=== PATIENT | female | born 1985 | race Caucasian/White ===

== ENCOUNTER → 2025-02-03 | Outpatient (CLI) | payer SELFPAY ==
--- NOTE | 2025-02-03 13:11 | BI_ITS ---
EXAM: SCRN MAMM (CAD)W/DEVAN BILAT 02/03/2025 CLINICAL HISTORY: F, Age 39 y/o , SCREENING TECHNIQUE: Bilateral Diagnostic digital breast tomosynthesis with 2D and 3D images. Computer aided detection. COMPARISON: None. This is a baseline study. FINDINGS: TISSUE DENSITY: The breast tissue is extremely dense which lowers the sensitivity of mammography. Bilateral Breast Mammographic Findings: There are clusters of amorphous, round and punctate microcalcifications in the superior outer aspect of the right breast and superior medial aspect of the right breast. There are clusters of amorphous, round and punctate microcalcifications in the superior outer aspect of the left breast and inferior outer aspect of the left breast. The calcifications in each breast appear to represent probable fibrocystic type calcifications and/or sclerosing adenosis type calcifications however, additional mammographic imaging is recommended for further evaluation since this is a baseline study. The images were not marked due to the large portion of each breast that is involved with the calcifications. BI/SCRN MAMM (CAD)W/DEVAN BILAT IMPRESSION: Right Breast: BIRADS 0 Incomplete: Need additional imaging evaluation and/or pr ior mammograms for comparison.. Left Breast: BIRADS 0 Incomplete: Need additional imaging evaluation and/or pr ior mammograms for comparison.. OVERALL FINAL ASSESSMENT: BIRADS 0 Incomplete: Need additional imaging evaluati on and/or prior mammograms for comparison.. RECOMMENDATION: Recommendation: Additional projections. Patient should return for LM views of the right and left breasts as well as spot compression magnification CC and spot-compression magnification LM views of the right and left breast microcalcifications A letter with findings and recommendations will be mailed to the patient. Reading Location: [id number]
== END | disposition home or self-care (01) ==
PROVIDERS: Referring Provider Physician Assistant; Visit Provider Physician Assistant
DX: Z12.31 Encounter for screening mammogram for malignant neoplasm of breast (principal)
CPT/HCPCS: 77063; 77067

== ENCOUNTER → 2025-02-11 | Outpatient (CLI) | payer SELFPAY ==
--- NOTE | 2025-02-11 09:09 | BI_ITS ---
EXAM: DIAG MAMM W/CAD, BILAT 02/11/2025 CLINICAL HISTORY: F, Age 39 y/o , ABN MAMM TECHNIQUE: Bilateral Diagnostic digital breast tomosynthesis with 2D and 3D images. Computer aided detection. COMPARISON: Prior exam(s) dated February 03, 2025.. FINDINGS: TISSUE DENSITY: The breast tissue is extremely dense which lowers the sensitivity of mammography. Bilateral Breast Mammographic Findings: Scattered bilateral microcalcifications unchanged. These most likely represent sclerosing adenosis and/or fibrocystic changes. BI/DIAG MAMM W/CAD, BILAT IMPRESSION: Right Breast: BIRADS 2 BENIGN FINDING. Left Breast: BIRADS 2 BENIGN FINDING. OVERALL FINAL ASSESSMENT: BIRADS 2 BENIGN FINDING. RECOMMENDATION: Routine annual follow-up in 1 Year A letter with findings and recommendations will be mailed to the patient. Reading Location: [id number]
== END | disposition home or self-care (01) ==
PROVIDERS: Referring Provider Physician Assistant; Visit Provider Physician Assistant
DX: R92.8 Other abnormal and inconclusive findings on diagnostic imaging of breast (principal)
CPT/HCPCS: 77062; 77066; G0279